=== PATIENT | male | born 1990 | race Two or more races ===

== ENCOUNTER 2022-08-04 13:29 | Emergency (ER) | payer SELFPAY ==
[~2022-08-04] VITALS: Ht 157.5 cm; Wt 81.6 kg
--- NOTE | 2022-08-04 13:50 | NUR ---
TO ER BED 7, SISTER C/O SOB "ASTHMA ATTACK, INHALER NOT EFFECTIVE x 3DAYS" TESTED NEGATIVE AT [facility] IN [facility]ACE, AAOX3, BREATHING EVEN AND NON LABORED, CONNECTED TO MONITOR
--- NOTE | 2022-08-04 13:57 | NUR ---
RT ON THE WAY
[2022-08-04] MEDS ORDERED: IPRATROPIUM NEB FS 0.5 MG/2.5 ML AMPUL.NEB NEB ONE (14:00)
[2022-08-04] MEDS ORDERED: predniSONE 20 MG TABLET PO ONE (14:00)
[2022-08-04] MEDS ORDERED: predniSONE 20 MG TABLET ONE (14:00)
[2022-08-04] MEDS ORDERED: ALBUTEROL FS 2.5 MG/3 ML VIAL.NEB CONTNEB ONE (14:00)
[2022-08-04] MEDS ORDERED: ALBUTEROL FS 2.5 MG/3 ML VIAL.NEB ONE (14:11)
[2022-08-04] MEDS ORDERED: ALBU8.5H8 INH (14:34)
[2022-08-04] MEDS ORDERED: PRED50TA PO (14:34)
--- NOTE | 2022-08-04 15:16 | NUR ---
Patient discharged to home in stable condition. Written and verbal after care instructions given. Patient verbalizes understanding of instruction.
[2022-08-04 15:17] VITALS: BP 135/90
== END 2022-08-04 15:17 | disposition home or self-care (01) ==
LOC: ER 13:33
DX: J45.901 Unspecified asthma with (acute) exacerbation (principal); Z79.899 Other long term (current) drug therapy
CPT/HCPCS: 99285; 93005 ×2; 94640; J7512